=== PATIENT | male | born 1960 | race Caucasian/White ===

== ENCOUNTER 2020-12-16 09:20 | Emergency (ER) | payer OTHER, SELFPAY ==
--- NOTE | ~2020-12-16 | XR_ITS ---
EXAMINATION: XR shoulder LT min 2V DATE: 12/16/2020 10:19 INDICATION: left shoulder pain post fall TECHNIQUE: AP, AP oblique externally rotated and transscapular Y views of the left shoulder were obta ined. COMPARISON: 12/07/2017 FINDINGS: Normal alignment. No fracture. Mild glenohumeral osteoarthritis with loose osteochondral body in the deep subscapular recess. Mild to moderate acromioclavicular osteoarthritis. Soft tissues are unremar kable. Visualized portions of the lungs are clear. IMPRESSION: Mild left glenohumeral and mild to moderate acromioclavicular osteoarthritis. No acute osseous abnorm ality. Reviewed, dictated and finalized at location A. IMPRESSION: Mild left glenohumeral and mild to moderate acromioclavicular osteoarthritis. N o acute osseous abnormality.
--- NOTE | ~2020-12-16 | XR_ITS ---
EXAMINATION: XR knee LT min 4V DATE: 12/16/2020 10:19 INDICATION: Lateral left knee pain post fall TECHNIQUE: Anteroposterior, 2 oblique and crosstable lateral views of the left knee were obtained COMPARISON: 12/05/2018 FINDINGS: Patella tomás. Alignment is otherwise normal. Postoperative changes at the anterior metaphyseal region of the proximal left tibia suggestive of relocation osteotomy of the anterior tibial tuberosity. No fracture. At least mild tricompartmental osteoarthritis at the left knee which could be underestimate d on nonweightbearing imaging. Moderate-sized left knee joint effusion without layering lipohemarthro sis. Prepatellar soft tissue swelling. Thickening of the patellar tendon with a couple small heteroto pic ossicles projecting over the proximal tendon. Additional soft tissue swelling along the lateral a spect of the knee. IMPRESSION: 1. At least mild tricompartmental osteoarthritis at the right knee with moderate-sized knee joint eff usion. No acute osseous abnormality. 2. Patella tomás with postoperative change of the proximal tibia suggesting relocation osteotomy of th e anterior tibial tuberosity. Reviewed, dictated and finalized at location A. IMPRESSION: 1. At least mild tricompartmental osteoarthritis at the right knee with moderat e-sized knee joint effusion. No acute osseous abnormality. 2. Patella tomás with postoperative change of the proximal tibia suggesting relo cation osteotomy of the anterior tibial tuberosity.
[2020-12-16 09:23] VITALS: BP 191/101; PULSE 103; RESP 16; TEMP 36.8; O2SAT 100
--- NOTE | 2020-12-16 11:02 | ED.LOWEXIN ---
HPI - Extremity Injury (Lower) General Chief Complaint: Extremity Injury, Lower Stated Complaint: L KNEE PAIN Time Seen by Provider: 12/16/20 09:40 Source: patient and RN notes reviewed Mode of arrival: ambulatory Limitations: no limitations History of Present Illness HPI Narrative: This is a 60 year old male with history of previous left knee surgery who presents for evaluation of left knee pain and left shoulder pain s/p fall. Patient states he was at work when injury occurred. He states he was knocked down on to his left side when he was hit by a trash can. He states he had left knee surgery 3 year ago so he was worried about injury to his left knee. He has been able to ambulate and bear weight but he states he has mild pain. He denies hitting his head or LOC. He has mild left shoulder pain but he does not think much is wrong since he is able to move it. He denies numbness or tingling. He suffered an abrasion to his left knee and his coworkers placed a bandage over the wound. Related Data Home Medications Medication Instructions Recorded Confirmed Unable to Obtain Home Medications 12/16/20 12/16/20 Allergies Allergy/AdvReac Type Severity Reaction Status Date / Time bacitracin Allergy Unknown Rash Verified 12/16/20 09:31 neomycin Allergy Unknown Rash Verified 12/16/20 09:31 polymyxin B Allergy Unknown Rash Verified 12/16/20 09:31 Review of Systems Review of Systems: All systems reviewed & are unremarkable except as noted in HPI and below PMFSH Past Medical History Medical History (Updated 12/16/20 @ 11:16 by Soha Diallo MD) BPH (benign prostatic hyperplasia) Gout Hypertension Surgical History Surgical History (Updated 12/16/20 @ 11:07 by Soha Diallo MD) H/O: knee surgery Family History Family History (Updated 11/30/17 @ 10:23 by DOCTOR UNKNOWN) Other Diabetes mellitus Family history of arthritis Family history of malignant neoplasm Family history of premature coronary heart disease Hypertension Social History Social History Smoking status: Never smoker Alcohol intake: current Exam Const: General: no acute distress and alert Orientation/consciousness: patient oriented x3 HENMT: Head: normocephalic and atraumatic Face and sinus: face symmetric Mouth: Yes Normal oral and palatal mucosa present, Yes lip normal, Yes oropharynx normal and Yes moist mucous membranes Eyes: EOM: EOMs intact bilaterally Chest: Chest palpation & inspection: normal inspection of the chest and no tenderness Resp: Effort & Inspection: normal respiratory effort and no retractions Auscultation: clear to auscultation bilaterally Cardio: Rate: regular rate Rhythm: regular rhythm Heart sounds: no murmurs GI: GI Palp: Yes Soft to palpation, No Tenderness to palpation present (GI) and No Guarding due to palpation present (GI) Auscultation: bowels sounds not normal Skin: Other: abrasion to left anterior knee Neuro: General: patient oriented x3 and moves all extremities Extrem: Other: left lower leg wrap in leonel bandage, TTP left anterior knee with mild swelling, no erythema. able to range at knee fully with some pain. left shoulder FROM, no swelling or deformity Psych: Mental Status: mental status grossly normal Affect: normal affect Course Reevaluation(s) Reevaluation #1: I discussed with patient xray results. He has a knee brace to wear for comfort and medication at home that he will take. Date: 12/16/20 Time: 11:12 Vital Signs Vital signs: Vital Signs Temperature 98.2 F 12/16/20 09:23 Pulse Rate 103 H 12/16/20 09:23 Respiratory Rate 16 12/16/20 09:23 Blood Pressure 191/101 H 12/16/20 09:23 Pulse Oximetry 100 12/16/20 09:23 Temperature 98.2 F 12/16/20 09:23 Pulse Rate 70 12/16/20 11:32 Respiratory Rate 16 12/16/20 11:32 Blood Pressure 126/82 12/16/20 11:32 Pulse Oximetry 99 12/16/20 11:32 MDM - Extremity Injury (Lower)
[2020-12-16 11:32] VITALS: BP 126/82; PULSE 70; RESP 16; O2SAT 99
== END 2020-12-16 11:34 | disposition home or self-care (01) ==
PROVIDERS: Emergency Provider General Practice; PCP Family Medicine Adolescent Medicine
DX: M25.462 Effusion, left knee (principal); M19.012 Primary osteoarthritis, left shoulder; S80.212A Abrasion, left knee, initial encounter; I10 Essential (primary) hypertension; W18.09XA Striking against other object with subsequent fall, initial encounter
CPT/HCPCS: 73030; 73564; 99284